=== PATIENT | female | born 2000 | race Caucasian/White ===

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

== ENCOUNTER → 2019-06-07 | Outpatient (CLI) | payer OTHER, SELFPAY ==
[2019-06-07 18:16] LABS: Chlamydia Trachomatis by PCR Negative (Negative); Neisserai gonorrhoeae by PCR Negative (Negative); Probe Check PASS; Sample Adequacy Control PASS; Specimen Processing Control PASS
== END | disposition home or self-care (01) ==
LOC: LABSPEC 15:41
PROVIDERS: Visit Provider Obstetrics & Gynecology
DX: Z11.3 Encounter for screening for infections with a predominantly sexual mode of transmission (principal)
CPT/HCPCS: 87491; 87591

== ENCOUNTER → 2020-06-09 | Outpatient (CLI) | payer OTHER, SELFPAY | END | disposition home or self-care (01) | PROVIDERS: Visit Provider Obstetrics & Gynecology | DX: Z12.4 Encounter for screening for malignant neoplasm of cervix (principal); Z11.3 Encounter for screening for infections with a predominantly sexual mode of transmission ==

== ENCOUNTER → 2021-07-13 | Outpatient (CLI) | payer BC, SELFPAY ==
[2021-07-21 17:03] LABS: Chlamydia By Nucleic Acid AMP Negative; Gonococcus By Nucleic Acid AMP Negative
== END | disposition home or self-care (01) ==
PROVIDERS: Visit Provider Obstetrics & Gynecology
DX: Z11.3 Encounter for screening for infections with a predominantly sexual mode of transmission (principal)
CPT/HCPCS: 87491; 87591

== ENCOUNTER 2023-05-04 18:17 | Emergency (ER) | payer BC, SELFPAY ==
[2023-05-04 18:18] VITALS: BP 127/85; PULSE 80; RESP 16; TEMP 36.9; O2SAT 100
[2023-05-04 18:42] VITALS: BMI 22.6
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
== END 2023-05-04 19:35 | disposition home or self-care (01) ==
PROVIDERS: Emergency Provider Emergency Medicine; PCP Family Medicine; Visit Provider Emergency Medicine
DX: L55.0 Sunburn of first degree (principal); R11.0 Nausea; R50.9 Fever, unspecified
CPT/HCPCS: 99282

== ENCOUNTER → 2023-06-19 | Outpatient (CLI) | payer OTHER, SELFPAY ==
[2023-06-23 17:15] LABS: HPV Reflexed? NOT INDICATED
== END | disposition home or self-care (01) ==
LOC: LABSPEC 16:07
PROVIDERS: PCP Family Medicine; Referring Provider Nurse Practitioner Women's Health; Visit Provider Nurse Practitioner Women's Health
DX: Z12.4 Encounter for screening for malignant neoplasm of cervix (principal)
CPT/HCPCS: 88175; G0145

== ENCOUNTER → 2023-12-11 | Outpatient (CLI) | payer OTHER, SELFPAY | END | disposition home or self-care (01) | LOC: LABSPEC 14:12 | PROVIDERS: PCP Family Medicine; Referring Provider Nurse Practitioner Women's Health; Visit Provider Nurse Practitioner Women's Health | DX: O26.899 Other specified pregnancy related conditions, unspecified trimester (principal); N89.8 Other specified noninflammatory disorders of vagina; Z3A.00 Weeks of gestation of pregnancy not specified | CPT/HCPCS: 87070; 87205 ==

== ENCOUNTER → 2024-01-02 | Outpatient (CLI) | payer OTHER, SELFPAY ==
[2024-01-02 09:13] LABS: Absolute Lymphocyte Count 1.97 X10^3/uL (0.83-4.51); Absolute Neutrophil Count 7.9 X10^3/uL (2.0-7.7); Basophil# 0.08 X10^3/uL; Basophil% 0.7 % (0-1); Eosinophil# 0.13 X10^3/uL; Eosinophils% 1.2 % (0-5); Hematocrit 38.6 % (37-47); Hemoglobin 13.1 g/dL (12.0-15.0); Lymphocyte # 1.97 X10^3/ul (0.83-4.51); Lymphocyte % 18.4 % (19-41); Mean Corp Hgb Conc 33.9 g/dL (32-36); Mean Corpuscular Hgb 31.6 pg (27.0-32.0); Monocyte# 0.62 X10^3/uL; Monocyte% 5.8 % (0-10); NRBC Flagged by Analyzer 0 % (0-5); Neutrophil # 7.86 X10^3/uL (2.7-7.7); Neutrophil % 73.4 % (47-70); Platelet Count 309 K/mm3 (150-450); RBC Distribution Width CV 12.6 % (11.6-14.6); RBC Distribution Width SD 43.4 fl (35.1-43.9); Red Blood Count 4.15 M/mm3 (4.2-5.4); White Blood Count 10.7 K/mm3 (4.4-11.0)
[2024-01-02 10:19] LABS: HIV - WCH Non-Reactive (Nonreactive); Hepatitis B Surface Antigen Non-Reactive (Nonreactive); Hepatitis C Antibody Non-Reactive (Nonreactive); Rubella IgG Reactive (Nonreactive); Syphilis Antibodies Non-reactive
--- OUTSIDE RECORDS SUMMARY | 2024-01-02 20:31 | XMS RPT_ITS | CCD ---
Author Name Unknown Address [address] [place] [address] Organization [facility] Care Team Providers Care Retail Seasonal Specialist Name Role Phone DAE DIAZ Admitting Unavail able DAE DIAZ Referring Unavail able SALINAS, PHUONG Attending Unavailable SALINAS, GREENBELT Primary Care Unavailable SALINAS, GREENBELT Admitting Unavailable Problems Problem Classification Problem Date Documented Da te Episodic/Chronic Malaise and fatigue (1 source) Other fatigue; Translations: [Other fatigue] Onset: 01-04-2023 Episodic Results Test Name Value Interpretation Reference Range Facil ity Encounters Encounter Date Encounter Type Care Provider Facility Start: 01-04-2023 End: 01-04-2023 ambulatory [facility] Start: 01-25-2019 Encounter for genera l adult medical examination without abnormal findings [facility] Start: 01-25-2019 End: 01-29-2019 Patient encounter procedure DAE NABIL [facility] Encounter for genera l adult medical examination without abnormal findings [facility] Summary Purpose Family History No Family History Records FoundNo Family History Records Found Advance Directives No Advanced Directives Records FoundNo Advanced Directives Records Found Additional Source Comments INFORMATION SOURCE (unrecogn ized section and content) DATE CREATED AUTHOR AUTHOR'S ORGANIZ ATION 01/17/2023 [facility] FOR RECORDS PERTAINING TO PATIENTS WHO ARE OR HAVE BEEN ENROLLED IN A CHEMICAL DEPENDENCY/SUBSTANCEABUSE PROGRAM, SOME INFORMATION MAY BE OMITTED. This clinical summary was aggregated from multiple sources. Caution should be exercised in using it in the provision of clinical care. This summary normalizes information from multiple sources, and as a consequence, information in this document may materially change the coding, format and clinical context of patient data. In addition, data may be omitted in some cases. CLINICAL DECISIONS SHOULD BE BASED ON THE PRIMARY CLINICAL RECORDS. [facility] provides no warranty or guarantee of the accuracy or completeness of information in this document.
[2024-01-04 10:09] LABS: Chlamydia By Nucleic Acid AMP Negative (Negative); Gonococcus By Nucleic Acid AMP Negative (Negative)
== END | disposition home or self-care (01) ==
PROVIDERS: PCP Family Medicine; Referring Provider Obstetrics & Gynecology; Visit Provider Obstetrics & Gynecology
DX: Z34.90 Encounter for supervision of normal pregnancy, unspecified, unspecified trimester (principal)
CPT/HCPCS: 36415; 85025; 86703; 86762; 86780; 86803; 86850; 86900; 86901; 87086; 87340; 87491; 87591

== ENCOUNTER → 2024-01-08 | Outpatient (CLI) | payer OTHER, SELFPAY | END | disposition home or self-care (01) | PROVIDERS: PCP Family Medicine; Referring Provider Obstetrics & Gynecology; Visit Provider Obstetrics & Gynecology | DX: Z34.81 Encounter for supervision of other normal pregnancy, first trimester (principal); Z31.430 Encounter of female for testing for genetic disease carrier status for procreative management ==

== ENCOUNTER → 2024-02-02 | Outpatient (CLI) | payer OTHER, SELFPAY | END | disposition home or self-care (01) | LOC: LABSPEC 16:30 | PROVIDERS: PCP Family Medicine; Referring Provider Obstetrics & Gynecology; Visit Provider Obstetrics & Gynecology | DX: O26.899 Other specified pregnancy related conditions, unspecified trimester (principal); R10.2 Pelvic and perineal pain | CPT/HCPCS: 87086 ==

== ENCOUNTER → 2024-04-26 | Outpatient (CLI) | payer OTHER, SELFPAY ==
[2024-04-26 15:01] LABS: Absolute Lymphocyte Count 2.15 X10^3/uL (0.83-4.51); Absolute Neutrophil Count 11.3 X10^3/uL (2.0-7.7); Basophil# 0.05 X10^3/uL; Basophil% 0.3 % (0-1); Eosinophil# 0.11 X10^3/uL; Eosinophils% 0.8 % (0-5); Hematocrit 36.8 % (37-47); Hemoglobin 12.6 g/dL (12.0-15.0); Lymphocyte # 2.15 X10^3/ul (0.83-4.51); Lymphocyte % 14.8 % (19-41); Mean Corp Hgb Conc 34.2 g/dL (32-36); Mean Corpuscular Volume 96.3 fL (81-99); Mean Platelet Vol. 9.5 fl (6.2-12.0); Monocyte# 0.84 X10^3/uL; Monocyte% 5.8 % (0-10); NRBC Flagged by Analyzer 0 % (0-5); Neutrophil # 11.31 X10^3/uL (2.7-7.7); Neutrophil % 77.8 % (47-70); Platelet Count 293 K/mm3 (150-450); RBC Distribution Width CV 13.1 % (11.6-14.6); RBC Distribution Width SD 46.5 fl (35.1-43.9); Red Blood Count 3.82 M/mm3 (4.2-5.4); White Blood Count 14.5 K/mm3 (4.4-11.0)
[2024-04-26 15:30] LABS: Glucose Challenge Gest 1H 50g 94 mg/dL (70-140)
[2024-04-26 15:52] LABS: HIV - WCH Non-Reactive (Nonreactive); Syphilis Antibodies Non-reactive
== END | disposition home or self-care (01) ==
LOC: LAB 14:22
PROVIDERS: PCP Family Medicine; Referring Provider Obstetrics & Gynecology; Visit Provider Obstetrics & Gynecology
DX: Z34.01 Encounter for supervision of normal first pregnancy, first trimester (principal)
CPT/HCPCS: 82950; 85025; 86703; 86780

== ENCOUNTER 2024-06-20 15:30 | Observation (INO) | payer OTHER, SELFPAY ==
[2024-06-20 10:39] VITALS: PULSE 73; O2SAT 100
[2024-06-20 10:42] VITALS: BP 131/87; PULSE 100
[2024-06-20 10:46] VITALS: BMI 29.5
--- NOTE | 2024-06-20 11:33 | US_ITS ---
STUDY: OBSTETRICAL ULTRASOUND - BIOPHYSICAL PROFILE REASON FOR EXAM: Female, 24 years old deceleration PRIOR ULTRASOUND: None. TECHNIQUE: Transabdominal TECHNICAL QUALITY: Adequate. FINDINGS: There is a single intrauterine fetus. The fetus is in a cephalic presentation. There is demonstrated cardiac activity with a heart rate of 141 bpm. There is a normal amniotic fluid volume. The largest amniotic fluid pocket measures 6.4 cm. The amniotic fluid index (MILLY) is 14.9 cm. The placenta is posterior in location and is not low lying. There are Grade 1 placental changes. Age by LMP: 33 weeks, 5 days. ESTEBAN by LMP: August 03, 2024. BIOPHYSICAL PROFILE: Breathing Movements (FBM): 2 Gross Body Movements (GBM): 2 Tone (FT): 2 Amniotic Fluid Volume (AFV): 2 TOTAL SCORE: US/Biophysical Prof W/O Non Stres IMPRESSION: Normal biophysical profile of 05/30. Electronically Signed: Dex Alvarado MD at 13:35 EDT ,
[2024-06-20] MEDS: Lactated Ringers 1,000 ML 999 ML IV (13:20)
[2024-06-20] MEDS: Betamethasone/Betamethasone 30 MG/5 ML Vial 12 MG IM (13:26)
[2024-06-20] MEDS: 0.9% Saline Lock 10 ML Syringe IV (13:28)
[2024-06-20 13:46] LABS: Absolute Lymphocyte Count 2.03 X10^3/uL (0.83-4.51); Absolute Neutrophil Count 11.1 X10^3/uL (2.0-7.7); Basophil# 0.05 X10^3/uL; Basophil% 0.4 % (0-1); Eosinophils% 0.7 % (0-5); Hematocrit 40.1 % (37-47); Hemoglobin 13.8 g/dL (12.0-15.0); Lymphocyte # 2.03 X10^3/ul (0.83-4.51); Lymphocyte % 14.4 % (19-41); Mean Corp Hgb Conc 34.4 g/dL (32-36); Mean Corpuscular Hgb 32.6 pg (27.0-32.0); Mean Corpuscular Volume 94.8 fL (81-99); Mean Platelet Vol. 9.9 fl (6.2-12.0); Monocyte# 0.73 X10^3/uL; Monocyte% 5.2 % (0-10); NRBC Flagged by Analyzer 0 % (0-5); Neutrophil # 11.09 X10^3/uL (2.7-7.7); Neutrophil % 78.7 % (47-70); Platelet Count 259 K/mm3 (150-450); RBC Distribution Width CV 12.6 % (11.6-14.6); RBC Distribution Width SD 43.4 fl (35.1-43.9); Red Blood Count 4.23 M/mm3 (4.2-5.4); White Blood Count 14.1 K/mm3 (4.4-11.0)
[2024-06-20 14:48] LABS: Mucous, Urine 0 SEEN /hpf (<or=2+); Red Blood Cells-Urine 0 SEEN /hpf (0-5)
[2024-06-20 14:57] LABS: Color, Urine Yellow (Yellow); Glucose, Dipstick Normal (Normal); Ketone-Dipstick 50 mg/dl (Negative); Leukocyte Esterase-Dipstick 25 /ul (Negative); Nitrite-Dipstick Negative (Negative); Occult Blood-Urine Negative /ul (Negative); Protein-Dipstick Negative (Negative); Urine Bilirubin Dipstick Negative (Negative); Urine Clarity Clear (Clear); Urine Urobilinogen Normal (Normal); Urine pH 6.5 (5.0 - 8.0)
[2024-06-20 15:03] LABS: Bacteria 1+ /hpf (None Seen); Squamous Epithelial Cells - UA 0-5 SEEN /hpf (5-10); White Blood Cells 0-5 SEEN /hpf (0-5)
[2024-06-20 16:12] LABS: Fetal Fibronectin Negative
[2024-06-20 16:13] LABS: Record Kit Lot#, fFN A4033
[2024-06-20 16:15] VITALS: BP 130/75; PULSE 83; TEMP 36.6
[2024-06-20 19:31] VITALS: PULSE 91; O2SAT 99
[2024-06-20 19:32] VITALS: RESP 14; TEMP 36.6
[2024-06-20 21:10] VITALS: BP 137/78; PULSE 79; O2SAT 97
[2024-06-21] VITALS (7 sets, daily range): BP systolic 112–132; BP diastolic 62–74; PULSE 68–100; RESP 14–15; TEMP 36.6–37.1; O2SAT 96–100
--- NOTE | 2024-06-21 06:43 | US_ITS ---
STUDY: OBSTETRICAL ULTRASOUND - BIOPHYSICAL PROFILE REASON FOR EXAM: Female, 24 years old decelerations PRIOR ULTRASOUND: Comparison is made with prior examination June 20, 2024. TECHNIQUE: Transabdominal TECHNICAL QUALITY: Adequate. FINDINGS: There is a single intrauterine fetus. The fetus is in a cephalic presentation. There is demonstrated cardiac activity with a heart rate of 152 bpm. There is a normal amniotic fluid volume. The largest amniotic fluid pocket measures 4.3 cm. The amniotic fluid index (MILLY) is 11.68 cm. The placenta is fundal in location. There are Grade 1 placental changes. Age by LMP: 33 weeks, 6 days. ESTEBAN by LMP: August 03, 2024. BIOPHYSICAL PROFILE: Breathing Movements (FBM): 2 Gross Body Movements (GBM): 2 Tone (FT): 2 Amniotic Fluid Volume (AFV): 2 TOTAL SCORE: 8 / 8 IMPRESSION: Normal biophysical profile of 8. Electronically Signed: Dex Alvarado MD at 8:39 EDT , STUDY: SECOND AND THIRD TRIMESTER OBSTETRICAL ULTRASOUND REASON FOR EXAM: Female, 24 years old decelerations TECHNIQUE: Transabdominal TECHNICAL QUALITY: Adequate. PRIOR ULTRASOUND: None. FINDINGS: There is a single intrauterine fetus. The fetus is in a cephalic presentation. There is demonstrated cardiac activity with a heart rate of 152 bpm. There is a normal amniotic fluid volume. The largest amniotic fluid pocket measures 4.3 cm. The amniotic fluid index (MILLY) is 11.68 cm. The placenta is fundal in location. There are Grade 1 placental changes. The adnexal regions are not visualized. BIOMETRY: BPD: 8.39 cm: 33 weeks, 5 days HC: 30.78 cm: 34 weeks, 2 days AC: 31.89 cm: 35 weeks, 6 days FL: 6.61 cm: 34 weeks, 0 days CI: 79% FL/BPD: 79% FL/HC: 21% FL/AC: 21% HC/AC: 0.97 age by current US: 34 weeks, 1 days. ESTEBAN by current US: August 01, 2024. Estimated weight: 2589 grams, +/- 388 grams, 78 %. Age by LMP: 33 weeks, 6 days. ESTEBAN by LMP: August 03, 2024. US/Biophysical Prof W/O Non Stres IMPRESSION: Single live intrauterine gestation with mean gestational age of 34 weeks and 1 day. Electronically Signed: Dex Alvarado MD at 8:41 EDT ,
--- NOTE | 2024-06-21 07:19 | OB.TRI.HP_ITS ---
HPI - General General Date of Admission: 06/20/24 HPI Narrative JACKLYN CASTRO, is a 24 F who presents due to decresaed fetla movement today no vb lof no regular ctx felt but they ar epresent on the monitor. Maternal Data Information ESTEBAN Calculator Estimated Delivery Date Method Current WG Current Estimate 08/03/24 LMP (Certain) 33w 6d PFSH PFSH Medical History Seasonal allergies Home Medications ?Medication ?Instructions ?Recorded ?Last Taken ?Type multivitamin no.47-iron fum 27 1 cap PO DAILY 12/29/23 06/19/24 21:00 History mg-folate no.1 1 mg-dha 300 mg 1 cap capsule (PNV-DHA) cetirizine 10 mg capsule (Zyrtec) 10 mg PO DAILY PRN allergy symptoms 03/26/24 03/23/24 08:00 History 10 mg Allergy/AdvReac Type Severity Reaction Status Date / Time No Known Allergies Allergy Verified 06/20/24 10:44 Surgical History [place] teeth extracted Social History adopted: No household members: spouse number of children: 0 current occupational status: employed current occupation: [employer] current occupational exposures/hazards: No pets and animals: Yes pets and animals: dog(s) history of recent travel: Yes ([place]) out of state: Yes out of country: No sexually active: Yes Smoking Status: Never smoker alcohol intake: never substance use type: does not use well-balanced diet: daily or most days caffeine: No eating out: 1-3 times/week during the past year weight has: remained stable what type of 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 duration: 45-60 minutes/day regine/sikhism: Episcopalian seatbelt use: always do you feel safe at home: Yes additional social history: -Brevin- Linemen History 1 Elective abortions Hx Para 0 Spontaneous abortions Hx # Term Pregnancies Ectopic pregnancies Hx # Pregnancies Multiple births # of living children Visit Details Expected Delivery Route/Plan Labor Preferences- CB/BF classes: [] labor support person: [] labor intervention preferences: [] pain management options preferred: [] cut cord/dad catch: [] : [] PP control planned: kris at 6 week ppv discussed possible routes of delivery and associated risks: [] special requests: [] Plans Covid status: [] Flu vaccine: [] Tdap vaccine: given Rhogam: na LARC form signed: declined movement and labor precautions reviewed. Problem list reviewed and updated with the most current plan of care details and appropriate orders placed. Relevant counseling for the gestational age provided. Continue routine care and follow up unless otherwise noted in visit notes/problem list details OB Flowsheet Initial Weight: Not Recorded Date -?-?-?-?-?-?-?-?-?-?-?-?- EGA Weight BP Urine Prot -?-?-?-?-?-?-?-?-?-?-?-?- Glucose FHR FuHt Pres Dilation -?-?-?-?-?-?-?-?-?-?-?-?- Effaced St Visit Note 01/02/24 -?-?-?-?-?-?-?-?-?-?-?-?- 9w 3d 152 lb 2 oz 131/78 -?-?-?-?-?-?-?-?-?-?-?-?- 189 -?-?-?-?-?-?-?-?-?-?-?-?- SM- CRL 2.19cm c ons with LMP 02/02/24 -?-?-?-?-?-?-?-?-?-?-?-?- 13w 6d 157 lb 6 oz 132/79 Nega tive -?-?-?-?-?-?-?-?-?-?-?-?- Negative 161 -?-?-?-?-?-?-?-?-?-?-?-?- JV- no complaint s today. we discussed abnormal carrier screen. FOB got tested and results are pending. 02/27/24 -?-?-?-?-?-?-?-?-?-?-?-?- 17w 3d 166 lb 4 oz 130/84 Nega tive -?-?-?-?-?-?-?-?-?-?-?-?- Negative 151 -?-?-?-?-?-?-?-?-?-?-?-?- JV- anatomy scan is 03/15. 's carrier screen is in chart. 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 03/26/24 -?-?-?-?-?-?-?-?-?-?-?-?- 21w 3d 172 lb 134/79 Negative -?-?-?-?-?-?-?-?-?-?-?-?- Negative 150 20 21 -?-?-?-?-?-?-?-?-?-?-?-?- KW- no vb/crampi ng. flutters today. KW- no vb/cramping. flutters today. 28 week labs discussed and planned to get before next appt. 04/26/24 -?-?-?-?-?-?-?-?-?-?-?-?- 25w 6d 175 lb 131/80 Negative -?-?-?-?-?-?-?-?-?-?-?-?- Negative 150 25 -?-?-?-?-?-?-?-?-?-?-?-?- SM- no vb lof go od fm no reuglar ctx 05/16/24 -?-?-?-?-?-?-?-?-?-?-?-?- 28w 5d 180 lb 8 oz 127/82 Nega tive -?-?-?-?-?-?-?-?-?-?-?-?- Negative 147 28 -?-?-?-?-?-?-?-?-?-?-?-?- JV- tdap was don e today. no complaints. 05/31/24 -?-?-?-?-?-?-?-?-?-?-?-?- 30w 6d 180 lb 114/71 Negative -?-?-?-?-?-?-?-?-?-?-?-?- Negative 140 30 -?-?-?-?-?-?-?-?-?-?-?-?- SM- no vb lof go od fm no regular ctx discussed control options consider kris after delivery, h/o acne but willing to try 06/14/24 -?-?-?-?-?-?-?-?-?-?-?-?- 32w 6d 183 lb 8 oz 124/79 Nega tive -?-?-?-?-?-?-?-?-?-?-?-?- Negative 150 33 -?-?-?-?-?-?-?-?-?-?-?-?- KW- no vb/lof/ct x. good fm. ROS Constitutional Constitutional: Reports systems reviewed and no addt'l complaints, except as documented and as per HPI ENT HEENT: Reports systems reviewed and no addt'l complaints, except as documented Cardiovascular Cardiovascular: Reports systems reviewed and no addt'l complaints, except as documented Respiratory/Chest Respiratory/Chest: Reports systems reviewed and no addt'l complaints, except as documented Gastrointestinal Gastrointestinal: Reports as per HPI Genitourinary Genitourinary: Reports as per HPI Musculoskeletal Musculoskeletal: Reports systems reviewed and no addt'l complaints, except as documented Integumentary Integumentary: Reports systems reviewed and no addt'l complaints, except as documented Neurologic Neurologic: Reports systems reviewed and no addt'l complaints, except as documented Physical Exam Const alert, oriented x3 and no apparent distress HEENT Head and Scalp: normocephalic and atraumatic Neck full ROM and no lymphadenopathy Chest inspection of chest normal Resp normal respiratory effort GI GI Narrative: gravid, abdomen nontender, AGA Manual OB Exam: dilated, effaced and station NST FHR Rate Baby A Baseline: 140 Variability:: Moderate Accelerations:: 15 x 15 Decelerations:: Late (one isolated decel) NST Reactive:: Yes FHR Category:: Category I (overall.) Uterine Activity:: regular q 2-4 Assessment & Plan (1) Late deceleration of heart rate: (2) Decreased movements in third trimester: (3) : QUALIFIERS: Weeks of gestation: 32 weeks Qualified Code(s): Z3A.32 - 32 weeks gestation of COMMENT: nl GCT, nl anatomy, afp declined. NIPT low risk, carrier testing neg. 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 celestone given., no cervical change. Charges/Coding Multi Select Codes Visit Charges Observation E&M Codin Initial observation care L3 Urinary/Genital Urinary/Genital CPT Codes: 96913-36 non-stress test Interp
--- NOTE | 2024-06-21 07:22 | OB.TRI.HP_ITS ---
HPI - General General Date of Admission: 06/20/24 HPI Narrative JACKLYN CASTRO, is a 24 F monitored overnight for dec movment now feeling large amounts of movement, 05/30 bpp yesterday no vb othe rthan with cervical exam, no lof doesn't feel the ctx. slept overnight. periods of a lower heart rate baseline ovenright but reactive and moderate variability. Maternal Data Information ESTEBAN Calculator Estimated Delivery Date Method Current WG Current Estimate 08/03/24 LMP (Certain) 34w 0d PFSH PFSH Medical History Seasonal allergies Home Medications ?Medication ?Instructions ?Recorded ?Last Taken ?Type multivitamin no.47-iron fum 27 1 cap PO DAILY 12/29/23 06/19/24 21:00 History mg-folate no.1 1 mg-dha 300 mg 1 cap capsule (PNV-DHA) cetirizine 10 mg capsule (Zyrtec) 10 mg PO DAILY PRN allergy symptoms 03/26/24 03/23/24 08:00 History 10 mg Allergy/AdvReac Type Severity Reaction Status Date / Time No Known Allergies Allergy Verified 06/20/24 10:44 Surgical History [place] teeth extracted Social History adopted: No household members: spouse number of children: 0 current occupational status: employed current occupation: [employer] current occupational exposures/hazards: No pets and animals: Yes pets and animals: dog(s) history of recent travel: Yes ([place]) out of state: Yes out of country: No sexually active: Yes Smoking Status: Never smoker alcohol intake: never substance use type: does not use well-balanced diet: daily or most days caffeine: No eating out: 1-3 times/week during the past year weight has: remained stable what type of 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 duration: 45-60 minutes/day regine/episcopal: Restoration seatbelt use: always do you feel safe at home: Yes additional social history: -Brevin- Linemen History 1 Elective abortions Hx Para 0 Spontaneous abortions Hx # Term Pregnancies Ectopic pregnancies Hx # Pregnancies Multiple births # of living children Visit Details Expected Delivery Route/Plan Labor Preferences- CB/BF classes: [] labor support person: [] labor intervention preferences: [] pain management options preferred: [] cut cord/dad catch: [] : [] PP control planned: kris at 6 week ppv discussed possible routes of delivery and associated risks: [] special requests: [] Plans Covid status: [] Flu vaccine: [] Tdap vaccine: given Rhogam: na LARC form signed: declined movement and labor precautions reviewed. Problem list reviewed and updated with the most current plan of care details and appropriate orders placed. Relevant counseling for the gestational age provided. Continue routine care and follow up unless otherwise noted in visit notes/problem list details OB Flowsheet Initial Weight: Not Recorded Date -?-?-?-?-?-?-?-?-?-?-?-?- EGA Weight BP Urine Prot -?-?-?-?-?-?-?-?-?-?-?-?- Glucose FHR FuHt Pres Dilation -?-?-?-?-?-?-?-?-?-?-?-?- Effaced St Visit Note 01/02/24 -?-?-?-?-?-?-?-?-?-?-?-?- 9w 3d 152 lb 2 oz 131/78 -?-?-?-?-?-?-?-?-?-?-?-?- 189 -?-?-?-?-?-?-?-?-?-?-?-?- SM- CRL 2.19cm c ons with LMP 02/02/24 -?-?-?-?-?-?-?-?-?-?-?-?- 13w 6d 157 lb 6 oz 132/79 Nega tive -?-?-?-?-?-?-?-?-?-?-?-?- Negative 161 -?-?-?-?-?-?-?-?-?-?-?-?- JV- no complaint s today. we discussed abnormal carrier screen. FOB got tested and results are pending. 02/27/24 -?-?-?-?-?-?-?-?-?-?-?-?- 17w 3d 166 lb 4 oz 130/84 Nega tive -?-?-?-?-?-?-?-?-?-?-?-?- Negative 151 -?-?-?-?-?-?-?-?-?-?-?-?- JV- anatomy scan is 03/15. 's carrier screen is in chart. 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 03/26/24 -?-?-?-?-?-?-?-?-?-?-?-?- 21w 3d 172 lb 134/79 Negative -?-?-?-?-?-?-?-?-?-?-?-?- Negative 150 20 21 -?-?-?-?-?-?-?--?-?-?-?-?- KW- no vb/crampi ng. flutters today. KW- no vb/cramping. flutters today. 28 week labs discussed and planned to get before next appt. 04/26/24 -?-?-?-?-?-?-?-?--?-?-?-?- 25w 6d 175 lb 131/80 Negative -?-?-?-?-?-?-?-?-?-?-?-?- Negative 150 25 -?-?-?-?-?-?-?-?-?-?-?-?- SM- no vb lof go od fm no reuglar ctx 05/16/24 -?-?-?-?-?-?-?-?-?-?-?-?- 28w 5d 180 lb 8 oz 127/82 Nega tive -?-?-?-?-?-?-?-?-?-?-?-?- Negative 147 28 -?-?-?-?-?-?-?-?-?-?-?--?- JV- tdap was don e today. no complaints. 05/31/24 -?-?-?-?-?-?-?-?-?-?-?-?- 30w 6d 180 lb 114/71 Negative -?-?-?-?-?-?-?-?-?-?-?-?- Negative 140 30 -?-?-?-?-?-?-?-?-?-?-?-?- SM- no vb lof go od fm no regular ctx discussed control options consider kris after delivery, h/o acne but willing to try 06/14/24 -?-?-?-?-?-?-?-?-?-?-?-?- 32w 6d 183 lb 8 oz 124/79 Nega tive -?-?-?-?-?-?-?-?-?-?-?-?- Negative 150 33 -?-?-?-?-?-?-?-?-?-?-?-?- KW- no vb/lof/ct x. good fm. ROS Constitutional Constitutional: Reports systems reviewed and no addt'l complaints, except as documented and as per HPI ENT HEENT: Reports systems reviewed and no addt'l complaints, except as documented Cardiovascular Cardiovascular: Reports systems reviewed and no addt'l complaints, except as documented Respiratory/Chest Respiratory/Chest: Reports systems reviewed and no addt'l complaints, except as documented Gastrointestinal Gastrointestinal: Reports as per HPI Genitourinary Genitourinary: Reports as per HPI Musculoskeletal Musculoskeletal: Reports systems reviewed and no addt'l complaints, except as documented Integumentary Integumentary: Reports systems reviewed and no addt'l complaints, except as documented Neurologic Neurologic: Reports systems reviewed and no addt'l complaints, except as documented Physical Exam Const alert, oriented x3 and no apparent distress HEENT Head and Scalp: normocephalic and atraumatic Neck full ROM and no lymphadenopathy Chest inspection of chest normal Resp normal respiratory effort GI GI Narrative: gravid, abdomen nontender, AGA Manual OB Exam: dilated, effaced and station NST FHR Rate Baby A Baseline: 110-130 Variability:: Moderate Accelerations:: 15 x 15 Decelerations:: None NST Reactive:: Yes FHR Category:: Category I (overall.) Uterine Activity:: spacing out more intermittent. Assessment & Plan (1) Late deceleration of heart rate: (2) Decreased movements in third trimester: (3) : QUALIFIERS: Weeks of gestation: 32 weeks Qualified Code(s): Z3A.32 - 32 weeks gestation of COMMENT: nl GCT, nl anatomy, afp declined. NIPT low risk, carrier testing neg. 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 kick counts fu nst monday Charges/Coding Multi Select Codes Visit Charges Observation E&M Codin Observation care discharge Urinary/Genital Urinary/Genital CPT Codes: 18117-24 non-stress test Interp
[2024-06-21] MEDS: Betamethasone/Betamethasone 30 MG/5 ML Vial 12 MG IM (13:14)
== END 2024-06-21 13:45 | disposition home or self-care (01) ==
PROVIDERS: Admitting Provider Obstetrics & Gynecology; PCP Family Medicine; Referring Provider Obstetrics & Gynecology; Visit Provider Obstetrics & Gynecology
DX: O36.8130 Decreased fetal movements, third trimester, not applicable or unspecified (principal); Z3A.34 34 weeks gestation of pregnancy
CPT/HCPCS: 96360; 36415; 59025; 59050; 76816; 76819; 81001; 82731; 85025; 86850; 86900; 86901; 96372; 99221; J7120; A4216; G0378; J0702

== ENCOUNTER 2024-06-24 08:35 | Outpatient (CLI) | payer OTHER, SELFPAY ==
[2024-06-24 08:48] VITALS: RESP 16; TEMP 36.5
[2024-06-24 08:49] VITALS: BP 120/74; PULSE 71
[2024-06-24 08:50] VITALS: PULSE 77; O2SAT 99
[2024-06-24 08:53] VITALS: BMI 29.9
[2024-06-24 10:17] VITALS: BP 124/76; PULSE 94; RESP 16; TEMP 36.8
[2024-06-24 10:19] VITALS: PULSE 90; O2SAT 94
[2024-06-24 10:20] VITALS: O2SAT 97
--- NOTE | 2024-06-24 11:11 | OB.TRI.PN ---
Progress Notes Progress Note: Patient presents for triage evaluation secondary to heart rate deceleration FHT: 140 Moderate variability reactive no decelerations category I tracing [place]: no regular Contractions Assessment and plan: herat rate deceleartoin 34 weeks Reactive NST, reassuring maternal and status patient discharged to home to follow-up as scheudled in office this ewke. See problem list details for additional plan information. Charges/Coding Procedures Urinary/Genital 52xxx-59xxx: 67351-37 non-stress test Interp Assessment & Plan (1) Supervision of normal : QUALIFIERS: Normal : normal first Trimester: first trimester Qualified Code(s): Z34.01 - Encounter for supervision of normal first , first trimester COMMENT: PRR , ESTEBAN 08/03/24, girl Sadie Aster (2) : QUALIFIERS: Weeks of gestation: 32 weeks Qualified Code(s): Z3A.32 - 32 weeks gestation of COMMENT: nl GCT, nl anatomy, afp declined. NIPT low risk, carrier testing neg. 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
== END 2024-06-24 09:30 | disposition home or self-care (01) ==
LOC: OBT 08:38 → WP 08:39
PROVIDERS: PCP Family Medicine; Visit Provider Obstetrics & Gynecology
DX: O36.8130 Decreased fetal movements, third trimester, not applicable or unspecified (principal); Z3A.32 32 weeks gestation of pregnancy; O36.8330 Maternal care for abnormalities of the fetal heart rate or rhythm, third trimester, not applicable or unspecified
CPT/HCPCS: 59025

== ENCOUNTER 2024-06-28 09:52 | Inpatient (IN) | payer OTHER, SELFPAY ==
[2024-06-28] VITALS (18 sets, daily range): BP systolic 102–141; BP diastolic 68–104; PULSE 59–81; RESP 12–18; TEMP 35.9–37.2; O2SAT 96–100; BMI 29.9
--- NOTE | 2024-06-28 09:13 | US_ITS ---
STUDY: OBSTETRICAL ULTRASOUND - BIOPHYSICAL PROFILE REASON FOR EXAM: Female, 24 years old possible abruption -- portable LMP: Not provided. PRIOR ULTRASOUND: 06/21/2024. TECHNIQUE: Transabdominal. TECHNICAL QUALITY: Incomplete exam. Dr. Ellis arrived to US room and stopped the US exam to deliver patient. FINDINGS: There is a single intrauterine fetus. The fetus is in a cephalic presentation. There is demonstrated cardiac activity with a heart rate of 144 bpm. The placenta is right lateral and fundal. There are Grade 1 placental changes. There is a hypoechoic area in the superior aspect of the placenta without vascularity measuring 4.3 x 4.3 x 2 cm. Age by LMP: 34 weeks, 6 days. ESTEBAN by LMP: 08/03/2024.. age by prior US: weeks, days. ESTEBAN by prior US: . age by current US: weeks, days. ESTEBAN by current US: . Gender: BIOPHYSICAL PROFILE: Breathing Movements (FBM): Gross Body Movements (GBM): Tone (FT): Amniotic Fluid Volume (AFV): TOTAL SCORE: / 8 US/Biophysical Prof W/O Non Stres IMPRESSION: 1. Incomplete exam since ordering physician came to the ultrasound room and stopped the ultrasound exam to deliver the patient. Unable to obtain biophysical profile. 2. Single live intrauterine in cephalic presentation with positive heart tones 144 BPM. 3. Abnormal hypoechoic area in the superior aspect of placenta without vascularity measuring 4.3 x 4.3 x 2 cm worrisome for placental abruption. Electronically Signed: Lam Rosario MD at 10:48 EDT ,
[2024-06-28] MEDS: Lactated Ringers 1,000 ML 999 ML IV (09:35)
[2024-06-28 09:53] LABS: Absolute Neutrophil Count 13.3 X10^3/uL (2.0-7.7); Basophil# 0.06 X10^3/uL; Basophil% 0.4 % (0-1); Eosinophils% 0.6 % (0-5); Hematocrit 43.1 % (37-47); Hemoglobin 14.8 g/dL (12.0-15.0); Lymphocyte % 13.6 % (19-41); Mean Corp Hgb Conc 34.3 g/dL (32-36); Mean Corpuscular Hgb 32.3 pg (27.0-32.0); Mean Corpuscular Volume 94.1 fL (81-99); Mean Platelet Vol. 9.9 fl (6.2-12.0); Monocyte# 0.97 X10^3/uL; Monocyte% 5.7 % (0-10); NRBC Flagged by Analyzer 0 % (0-5); Neutrophil # 13.33 X10^3/uL (2.7-7.7); Neutrophil % 78.9 % (47-70); Platelet Count 292 K/mm3 (150-450); RBC Distribution Width CV 12.2 % (11.6-14.6); RBC Distribution Width SD 42.4 fl (35.1-43.9); Red Blood Count 4.58 M/mm3 (4.2-5.4); White Blood Count 16.9 K/mm3 (4.4-11.0)
[2024-06-28] MEDS: Acetaminophen 500 MG Tablet 1000 MG PO ×3 (10:01→22:30)
[2024-06-28] MEDS: Sodium Citrate/Citric Acid 30 ML UDC PO (10:01)
--- NOTE | 2024-06-28 10:01 | HP.PCM.OB_ITS ---
HPI - General General Date of Admission: 06/28/24 HPI Narrative JACKLYN CASTRO, is a 24 F who presents with acute vaginal bleeding abodminla pain, diagnosed iwth abruption on ultrosaund received steroids a week ago. Maternal Data Information ESTEBAN Calculator Estimated Delivery Date Method Current WG Current Estimate 08/03/24 LMP (Certain) 34w 6d PFSH PFSH Medical History Seasonal allergies Home Medications ?Medication ?Instructions ?Recorded ?Last Taken ?Type multivitamin no.47-iron fum 27 1 cap PO DAILY 12/29/23 06/23/24 History mg-folate no.1 1 mg-dha 300 mg capsule (PNV-DHA) cetirizine 10 mg capsule (Zyrtec) 10 mg PO DAILY PRN allergy symptoms 03/26/24 03/23/24 08:00 History 10 mg Allergy/AdvReac Type Severity Reaction Status Date / Time No Known Allergies Allergy Verified 06/28/24 08:54 Surgical History [place] teeth extracted Social History adopted: No household members: spouse number of children: 0 current occupational status: employed current occupation: [employer] current occupational exposures/hazards: No pets and animals: Yes pets and animals: dog(s) history of recent travel: Yes ([place]) out of state: Yes out of country: No sexually active: Yes Smoking Status: Never smoker alcohol intake: never substance use type: does not use well-balanced diet: daily or most days caffeine: No eating out: 1-3 times/week during the past year weight has: remained stable what type of 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 duration: 45-60 minutes/day regine/mu-ism: Hindu seatbelt use: always do you feel safe at home: Yes additional social history: -Brevin- [employer] History 1 Elective abortions Hx Para 0 Spontaneous abortions Hx # Term Pregnancies Ectopic pregnancies Hx # Pregnancies Multiple births # of living children Visit Details Expected Delivery Route/Plan Labor Preferences- CB/BF classes: [] labor support person: [] labor intervention preferences: [] pain management options preferred: [] cut cord/dad catch: [] : [] PP control planned: kris at 6 week ppv discussed possible routes of delivery and associated risks: [] special requests: [] Plans Covid status: [] Flu vaccine: [] Tdap vaccine: given Rhogam: na LARC form signed: declined movement and labor precautions reviewed. Problem list reviewed and updated with the most current plan of care details and appropriate orders placed. Relevant counseling for the gestational age provided. Continue routine care and follow up unless otherwise noted in visit notes/problem list details OB Flowsheet Initial Weight: Not Recorded Date -?-?-?-?-?-?-?-?-?-?-?-?- EGA Weight BP Urine Prot -?-?-?-?-?-?-?-?-?-?-?-?- Glucose FHR FuHt Pres Dilation -?-?-?-?-?-?-?-?-?-?-?-?- Effaced St Visit Note 01/02/24 -?-?-?-?-?-?-?-?-?-?-?-?- 9w 3d 152 lb 2 oz 131/78 -?-?-?-?-?-?-?-?-?-?-?-?- 189 -?-?-?-?-?-?-?-?-?-?-?-?- SM- CRL 2.19cm c ons with LMP 02/02/24 -?-?-?-?-?-?-?-?-?-?-?-?- 13w 6d 157 lb 6 oz 132/79 Nega tive -?-?-?-?-?-?-?-?-?-?-?-?- Negative 161 -?-?-?-?--?-?-?-?-?-?-?-?- JV- no complaint s today. we discussed abnormal carrier screen. FOB got tested and results are pending. 02/27/24 -?-?-?-?-?-?-?-?-?-?-?-?- 17w 3d 166 lb 4 oz 130/84 Nega tive -?-?-?-?-?-?-?-?-?-?-?-?- Negative 151 -?-?-?-?-?-?-?-?-?-?-?-?- JV- anatomy scan is 03/15. 's carrier screen is in chart. 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 03/26/24 -?-?-?-?-?-?-?-?-?-?-?-?- 21w 3d 172 lb 134/79 Negative -?-?-?-?-?-?-?-?-?-?-?-?- Negative 150 20 21 -?-?-?-?-?-?-?-?-?-?-?-?- KW- no vb/crampi ng. flutters today. KW- no vb/cramping. flutters today. 28 week labs discussed and planned to get before next appt. 04/26/24 -?-?-?-?-?-?-?-?-?-?-?-?- 25w 6d 175 lb 131/80 Negative -?-?-?-?-?-?-?-?-?-?-?-?- Negative 150 25 -?-?-?-?-?-?-?-?-?-?-?-?- SM- no vb lof go od fm no reuglar ctx 05/16/24 -?-?-?-?-?-?-?-?-?-?-?-?- 28w 5d 180 lb 8 oz 127/82 Nega tive -?-?-?-?-?-?-?-?-?-?-?-?- Negative 147 28 -?-?-?-?-?-?-?-?-?-?-?-?- JV- tdap was don e today. no complaints. 05/31/24 -?-?-?-?-?-?-?-?-?-?-?-?- 30w 6d 180 lb 114/71 Negative -?-?-?-?-?-?-?-?-?-?-?-?- Negative 140 30 -?-?-?-?-?-?-?-?-?-?-?-?- SM- no vb lof go od fm no regular ctx discussed control options consider kris after delivery, h/o acne but willing to try 06/14/24 -?-?-?-?-?-?-?-?-?-?-?-?- 32w 6d 183 lb 8 oz 124/79 Nega tive -?-?-?-?-?-?-?-?-?-?-?-?- Negative 150 33 -?-?-?-?-?-?-?-?-?-?-?-?- KW- no vb/lof/ct x. good fm. NST FHR Rate Baby A Baseline: 150 Variability:: Moderate Accelerations:: 15 x 15 Decelerations:: None NST Reactive:: Yes FHR Category:: Category I Uterine Activity:: q3-5 ROS Constitutional Constitutional: Reports systems reviewed and no addt'l complaints, except as documented ENT HEENT: Reports systems reviewed and no addt'l complaints, except as documented Cardiovascular Cardiovascular: Reports systems reviewed and no addt'l complaints, except as documented Respiratory/Chest Respiratory/Chest: Reports systems reviewed and no addt'l complaints, except as documented Gastrointestinal Gastrointestinal: Reports systems reviewed and no addt'l complaints, except as documented and nausea; Denies abdominal pain Genitourinary Genitourinary: Reports systems reviewed and no addt'l complaints, except as documented, contractions Details: present and frequency (regular ) and movement Details: present Musculoskeletal Musculoskeletal: Reports systems reviewed and no addt'l complaints, except as documented Integumentary Integumentary: Reports as per HPI Neurologic Neurologic: Reports systems reviewed and no addt'l complaints, except as documented Endocrine Endocrinology: Reports systems reviewed and no addt'l complaints, except as documented Vital Signs Vital Signs Vital Signs: 06/28/24 08:55 06/28/24 08:55 06/28/24 08:55 Temperature Temperature Source Temporal Pulse Rate 81 Respiratory Rate Blood Pressure 129/85 H BP Systolic 129 BP Diastolic 85 Pulse Ox 06/28/24 08:55 06/28/24 08:55 06/28/24 08:55 Temperature 98.9 F Temperature Source Pulse Rate Respiratory Rate 16 Blood Pressure BP Systolic BP Diastolic Pulse Ox 99 Weight Weight: 185 lb 5 oz Body Mass Index (BMI) 29.9 Physical Exam Const alert, oriented x3 and healthy appearing Constitutional Narrative: uncomfortable with contractions HEENT normocephalic and moist oral mucous membranes Head and Scalp: atraumatic Neck full ROM, no lymphadenopathy, supple and thyroid normal General: trachea midline Thyroid: thyroid normal Lymph Lymphatic: no lymphadenopathy noted Chest inspection of chest normal Resp normal respiratory effort Cardio regular rate GI normal to inspection, nondistended, normoactive bowel sounds, soft to palpation and non-tender Inspection: gravid external exam normal Bimanual Exam - Vag & Uterus: uterus non-tender Manual OB Exam: estimated gestational size appropriate, presentation cephalic, dilated, effaced and station Extremity normal to inspection General Extremity: Negative for edema Skin no rashes or lesions noted Neuro deep tendon reflexes 2+ bilaterally Motor Exam: strength 5/5 throughout and clonus absent Psych mental status grossly normal Labs Labs Labs: Blood Type A POSITIVE Antibody Screen NEGATIVE Hct 43.1 % (37-47) Hgb 14.8 g/dL (12.0-15.0) Syphilis Total Ab Non-reactive Rubella IgG Antibody Reactive (Nonreactive) Hep Bs Antigen Non-Reactive (Nonreactive) Hepatitis C Antibody Non-Reactive (Nonreactive) Chlamydia DNA (CHAZ) Negative (Negative) N.gonorrhoeae DNA (CHAZ) Negative (Negative) HIV 1&2 Antibody Non-Reactive (Nonreactive) Glucose 1 Hr 50 gm 94 mg/dL (70-140) Miscellaneous Test Assessment & Plan (1) : QUALIFIERS: Weeks of gestation: 32 weeks Qualified Code(s): Z3A.32 - 32 weeks gestation of COMMENT: nl GCT, nl anatomy, afp declined. NIPT low risk, carrier testing neg. 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 After discussing the patient's diagnosis and treatment plan options, patient wishes to proceed with surgical management. I have discussed with the patient the risks, benefits, and alternatives of the procedure which include but are not limited to risks of anesthesia, bleeding, infection, possible damage to bowel, bladder, or surrounding vasculature which could lead to additional surgery to evaluate any complications. Patient agrees to procedure and wishes to proceed. ACOG/uptodate references given for additional information regarding procedure.
--- NOTE | 2024-06-28 10:04 | OP.PCM_ITS ---
Assessment & Plan (1) Vaginal bleeding during : (2) Placental abruption in third trimester: (3) : QUALIFIERS: Weeks of gestation: 32 weeks Qualified Code(s): Z3A.32 - 32 weeks gestation of COMMENT: nl GCT, nl anatomy, afp declined. NIPT low risk, carrier testing neg. 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 (4) Supervision of normal : QUALIFIERS: Normal : normal first Trimester: first trimester Qualified Code(s): Z34.01 - Encounter for supervision of normal first , first trimester COMMENT: PRR , ESTEBAN 08/03/24, girl Sadie Rodarte Maternal Data Information ESTEBAN Calculator Estimated Delivery Date Method Current WG Current Estimate 08/03/24 LMP (Certain) 35w 0d Final ESTEBAN Source: LMP Gestational age: 39 Details Operative Information Date of Procedure: 06/28/24 Pre-Operative Diagnosis: see a/p diagnoses Post-Operative Diagnosis: same Indications Narrative: surgeon: Linh Kim MD Procedure Type: low transverse kindergarten instructional assistant #1: Jessy Black Special Medications: none Drain: Maki to straight drain Estimated Blood Loss: 600 Fluids Replaced: crystalloid Procedure Start Time: 10:06 Procedure Stop Time: 11:00 Findings Description of Procedure: The patient was placed in the dorsal supine position with leftward tilt. Patient was prepped and draped in the normal sterile fashion. Pfannenstiel skin incision was made with the scalpel and carried through to the underlying layer of fascia with the scalpel. Fascia was nicked in the midline and the incision extended laterally. The rectus bellies were dissected off superiorly and inferiorly with out complication both sharply and bluntly. The peritoneum was entered digitally. The incision was stretched and a low transverse uterine incision was made with the scalpel. The 's head was delivered atraumatically followed by the anterior and posterior shoulders without complication the rest of the infant delivered. The cord was clamped and cut and the was handed off to awaiting nurse. The placenta was delivered spontaneously immediately following and was noted to be intact with an abruption noted underneath one of the cotyledons and have a three-vessel cord. dark 1/4 cup sized clot noted, and couvelair uterus small amount noted also. The uterus was exteriorized cleared of all clots and debris, and the incision was closed in a single layer closure using #1 Monocryl. The ovaries and fallopian tubes were noted to be within normal limits. The uterus was returned to the maternal abdomen and gutters were cleared of all clots and debris. The peritoneum was closed with 3-0 Monocryl in a running fashion. Fascia was closed with 0 PDS in a running fashion. Subcutaneous tissue was copiously irrigated and the skin was closed with 3-0 Monocryl in a subcuticular fashion. Mepilex dressing was applied without complication. Patient was taken to recovery in stable condition. It was discussed with the patient that based on the clinical information obtained during this encounter, combined with her history, at this time I would recommend vaginal or cesareans for future deliveries if further pregnancies are desired. Placental Delivery Description: Spontaneous Placenta Disposition: [facility] Cord Vessel Description: 3 Vessels Delayed Cord Clamping: Yes Complications Risks of Surgery Discussed w/Patient: Bleeding, Infection, Need for Future C- Sections and Injury to surrounding structure(s) including bowel and bladder Complications: none Admit VTE Documentation VTE Present on Admission: No VTE Mechan Device Prophylaxis: SCD's Procedures Urinary/Genital 52xxx-59xxx: 30091 Delivery [facility]
[2024-06-28] MEDS: Cefazolin 2 GM in 0.9% Normal Saline (100mL Bag) 100 ML IV (10:06)
[2024-06-28 10:34] LABS: Prothrombin Time (Protime)PT. 13.2 SECONDS (11.7-14.9)
[2024-06-28 10:35] LABS: Partial Thromboplast Time 27.2 Seconds (24.1-36.2)
[2024-06-28 10:41] LABS: Fibrinogen 516 mg/dl (203-444)
[2024-06-28] MEDS: Oxytocin 15 Units/NS 250ml 15 UNITS/250 ML IV.SOLN 83 UNITS IV (11:10)
[2024-06-28] MEDS: Ketorolac 30 MG/ML Syringe IV ×3 (11:39→23:59)
--- NOTE | 2024-06-28 11:52 | PLAC_PTH ---
PATIENT: JACKLYN CASTRO LOC: [facility] U#:[id number] AGE/SX: 24/F ROOM: [facility] RE06/28/[address]: Dr. Linh Kim MD : 2000 BED: 1 DIS: 06/30/2024 SPEC #: [id number] RECD: 06/28/24 11:57 STATUS: ESTEFANIA DEMARCO #: [id number] SANIYA: 06/28/24 11:[address]: Linh Kim DEPT: SURGICAL PATHOLOGY RECD BY: Stephen Smiley ENTERED: 07/01/24 07:14 SP TYPE: PLACENTA OTHR DR: Sandra Kidd PA-C Tissues: Placenta, NOS Procedures: Surgery Specimen Level V HEADER OPERATION: Primary section PRE-OP DIAGNOSIS: Abruption TISSUE SUBMITTED: Placenta MICROSCOPIC DIAGNOSIS Placenta: Placental disc - third trimester placenta (426 gm). - Focal area of peripheral infarction and calcifications (2.5 cm in greatest dimension). Membranes - no pathologic diagnosis. Umbilical cord - three blood vessels and no pathologic diagnosis. SJ: 07/02/2024 MICROSCOPIC DESCRIPTION Slides are reviewed. GROSS DESCRIPTION SPECIMEN: PLACENTA / CLINICAL INFORMATION: A. Weight: Not available B. Gestational Age: 34 weeks C. Sex: Female PLACENTAL WEIGHT (POST FIXATION): 426 gm PLACENTAL DIMENSIONS: 15.0 x 17.0 x 3.0 cm PLACENTAL SHAPE: Usual ovoid PLACENTAL WEIGHT FOR GESTATIONAL AGE: Within 10-99th percentile MEMBRANES - Present A. Insertion: Marginal B. Site of rupture from edge: 2.0 cm from edge of placental disc C. Color of membrane: Villalba-bass D. Abnormalities: None UMBILICAL CORD - Present A. Color: Villalba-bass B. Insertion: Paracentral C. Length: 23.0 cm D. Diameter: 1.3 cm E. Number of vessels: Three F. Abnormalities: None PLACENTAL DISC - Present A. Color of surface: Villalba-bass B. surface abnormalities: None C. Maternal cotyledons: Intact with minimal tears D. Attached retro placental clot: No clot E. Cut surface: Dark red and spongy F. Lesions: Sections reveal a villalba indurated area in the peripheral portion of the placenta measuring 2.5cm in greatest dimension. G. Separate clot: Multiple blood clots weighing in aggregate 20gm and measuring 5.0 x 6.0 x 2.0cm. SECTIONS SUBMITTED: (6 cassettes) 1. Membrane roll 2. Cord, maternal end 3. Cord, end 4. Placental disc, and maternal surfaces, lesion 5. Placental disc, and maternal surfaces 6. Placental disc, and maternal surfaces JORDYN/ 07/01/2024 TC:5 CPT: 79434
[2024-06-28] MEDS: Lactated Ringers 1,000 ML 100 ML IV (14:15)
[2024-06-28] MEDS: 0.9% Saline Lock 10 ML Syringe IV (15:38)
[2024-06-29 00:03] VITALS: BP 118/81; PULSE 60; RESP 16; TEMP 36.7; O2SAT 96
[2024-06-29] MEDS: Acetaminophen 500 MG Tablet 1000 MG PO ×4 (04:29→23:38)
[2024-06-29] MEDS: Ketorolac 30 MG/ML Syringe IV (06:05)
[2024-06-29] MEDS: 0.9% Saline Lock 10 ML Syringe IV ×2 (06:05)
[2024-06-29 06:21] VITALS: BP 122/81; PULSE 64
[2024-06-29 06:21] LABS: Hematocrit 36.1 % (37-47); Mean Corp Hgb Conc 33.2 g/dL (32-36); Mean Corpuscular Hgb 32.3 pg (27.0-32.0); Mean Platelet Vol. 9.8 fl (6.2-12.0); Platelet Count 244 K/mm3 (150-450); RBC Distribution Width CV 12.5 % (11.6-14.6); RBC Distribution Width SD 44.6 fl (35.1-43.9); Red Blood Count 3.72 M/mm3 (4.2-5.4); White Blood Count 18.7 K/mm3 (4.4-11.0)
[2024-06-29 06:22] VITALS: BP 122/81; PULSE 64; RESP 16; TEMP 36.7; O2SAT 98
[2024-06-29 07:33] VITALS: BP 131/80; PULSE 68; PULSE 71; PULSE 74; RESP 16; TEMP 36.5; O2SAT 100; O2SAT 97
--- NOTE | 2024-06-29 08:16 | PCM.PN.OB ---
Subjective Subjective Patient doing well without complaints. Tolerating PO. Ambulating and voiding without difficulty. feeding well. Denies chest pain, shortness of breath, calf pain/swelling, fevers, chills, lightheadedness. Objective Data Objective Data Vital Signs: Vital Signs Temp Pulse Resp BP Pulse Ox O2 Del Method 97.7 F L 74 16 131/80 H 100 Room Air 06/29/24 07:33 06/29/24 07:33 06/29/24 07:33 06/29/24 07:33 06/29/24 07:33 06/29/24 07:33 Oxygen Delivery Method Room Air Weight: 185 lb 5 oz Body Mass Index (BMI) 29.9 Intake & Output: Intake and Output for Last 24 Hours 06/27/24 06/28/24 06/29/24 23:59 23:59 23:59 Intake Total 1306.15 / 1306.15 Output Total 2525 / 2525 Balance -1218.85 / -1218.85 Lab / Micro Data 06/29/24 06:13 Labs: Laboratory Results - last 24 hr 06/28/24 09:35: WBC 16.9 H, RBC 4.58, Hgb 14.8, Hct 43.1, MCV 94.1, MCH 32.3 H, MCHC 34.3, RDW Std Deviation 42.4, RDW Coeff of Sly 12.2, Plt Count 292, MPV 9.9, Immature Gran % (Auto) 0.800, Neut % (Auto) 78.9 H, Lymph % (Auto) 13.6 L, [place] % (Auto) 5.7, Eos % (Auto) 0.6, Baso % (Auto) 0.4, Absolute Neuts (auto) 13.3 H, Absolute Lymphs (auto) 2.30, Nucleated RBC % 0, PT 13.2, INR 1.0, APTT 27.2, Fibrinogen 516 H, Blood Type Cancelled, Antibody Screen Cancelled 06/28/24 10:05: Blood Type A POSITIVE, Antibody Screen NEGATIVE 06/29/24 06:13: WBC 18.7 H, RBC 3.72 L, Hgb 12.0, Hct 36.1 L, MCV 97.0, MCH 32.3 H, MCHC 33.2, RDW Std Deviation 44.6 H, RDW Coeff of Sly 12.5, Plt Count 244, MPV 9.8 Radiography Diagnostic Testing: Radiology Impression Biophysical Profile Ultrasound 06/28/24 09:13 IMPRESSION: 1. Incomplete exam since ordering physician came to the ultrasound room and stopped the ultrasound exam to deliver the patient. Unable to obtain biophysical profile. 2. Single live intrauterine in cephalic presentation with positive heart tones 144 BPM. 3. Abnormal hypoechoic area in the superior aspect of placenta without vascularity measuring 4.3 x 4.3 x 2 cm worrisome for placental abruption. Electronically Signed: Lam Rosario MD at 10:48 EDT , ROS Constitutional Constitutional: Reports systems reviewed and no addt'l complaints, except as documented Cardiovascular Cardiovascular: Reports systems reviewed and no addt'l complaints, except as documented Respiratory/Chest Respiratory/Chest: Reports systems reviewed and no addt'l complaints, except as documented Gastrointestinal Gastrointestinal: Reports systems reviewed and no addt'l complaints, except as documented Physical Exam Const alert, oriented x3 and no apparent distress HEENT Head and Scalp: atraumatic Resp normal respiratory effort GI soft to palpation and non-tender Inspection: incision intact, healing well and drainage (none) Bimanual Exam - Vag & Uterus: uterus non-tender Uterus Palpation: uterus fundus firm (below Umbilicus) Assessment & Plan (1) delivery delivered: COMMENT: LTCS abruptiong 34 girl [facility] PLAN: Plan s/p LTCS PPD # 1 1. routine post care 2. breast feeding- support given 3. rh positive 4. rubella immune
--- NOTE | 2024-06-29 08:17 | DCINST_ITS ---
Discharge Instructions Diet Discharge Diet: No restrictions Activity Discharge Activity: May Not Drive (for 2 weeks or while taking narcotic pain medications.), May Shower and May Take a Tub Bath (in 7 days) May shower in (days): 0 May resume sexual activity in: 4-6 weeks Weight Bearing Status: Full weight bearing Lifting Restrictions: 20 pounds Dressing / Incision Call your doctor if your incision/area has: Continuous Slow Oozing, Sudden Increased Bleeding, Increased Pain/ Swelling, Increased Redness and Foul Smelling Discharge Call your doctor if you observe: Fever of 101 or Higher and Using more than 1 pad per hour (for 2 hours) Suture Line Care: Avoid Pulling/Pushing and Avoid Pinching/Bending Cleanse incision/area with: Soap & Water and Keep Dressing Clean & Dry Follow Up Care Please Follow Up With: Linh Kim MD When: Call [phone] to make an appointment for an incision check in 1-2 weeks. Test Results: Test results from this visit will be discussed in further detail at your follow- up appointment, if applicable. Discharge Plan Admission Admit Date/Time: 06/28/24 09:51 Attending Provider: Linh Kim Primary Care Provider: Sandra Kidd Discharge Orders/Prescriptions Prescriptions: New oxycodone-acetaminophen [Percocet] 5-325 mg tablet 1 tab PO Q6H PRN (Reason: pain) 7 Days Qty: 10 0RF naproxen 500 mg tablet 500 mg PO BID PRN PRN (Reason: Pain) Qty: 30 1RF No Action PNV-DHA 27 mg iron-1 mg -300 mg capsule 1 cap PO DAILY Zyrtec 10 mg capsule 10 mg PO DAILY PRN (Reason: allergy symptoms) Referrals / Follow Up: Sandra Kidd PA-C [Primary Care Provider] - Disposition Disposition (needs filled in before D/C Order can be placed): Home, Self Care
[2024-06-29] MEDS: Senna/Docusate Sodium 1 Tablet PO (10:37)
[2024-06-29] MEDS: Naproxen 500 MG Tablet PO ×2 (11:57→19:30)
[2024-06-29 13:58] VITALS: BP 132/89; PULSE 73; RESP 16; TEMP 37.2; O2SAT 100
[2024-06-29 20:45] VITALS: BP 120/71; PULSE 94; RESP 16; TEMP 36.8; O2SAT 98
[2024-06-30 01:20] VITALS: BP 131/91; PULSE 84; RESP 18; TEMP 36.7; O2SAT 100
[2024-06-30] MEDS: Naproxen 500 MG Tablet PO (04:06)
[2024-06-30] MEDS: Acetaminophen 500 MG Tablet 1000 MG PO ×2 (06:12→11:44)
--- NOTE | 2024-06-30 07:35 | PCM.PN.OB ---
Subjective Subjective Patient doing well without complaints. Tolerating PO. Ambulating and voiding without difficulty. feeding well. Denies chest pain, shortness of breath, calf pain/swelling, fevers, chills, lightheadedness. Objective Data Objective Data Vital Signs: Vital Signs Temp Pulse Resp BP Pulse Ox O2 Del Method 98.1 F 84 18 131/91 H 100 Room Air 06/30/24 01:20 06/30/24 01:20 06/30/24 01:20 06/30/24 01:20 06/30/24 01:20 06/30/24 01:20 Oxygen Delivery Method Room Air Weight: 185 lb 5 oz Body Mass Index (BMI) 29.9 Intake & Output: Intake and Output for Last 24 Hours 06/28/24 06/29/24 06/30/24 23:59 23:59 23:59 Intake Total 1306.15 / 1306.15 Output Total 2525 / 2525 Balance -1218.85 / -1218.85 Lab / Micro Data 06/29/24 06:13 Labs: Laboratory Results - last 24 hr 06/28/24 09:35: WBC 16.9 H, RBC 4.58, Hgb 14.8, Hct 43.1, MCV 94.1, MCH 32.3 H, MCHC 34.3, RDW Std Deviation 42.4, RDW Coeff of Sly 12.2, Plt Count 292, MPV 9.9, Immature Gran % (Auto) 0.800, Neut % (Auto) 78.9 H, Lymph % (Auto) 13.6 L, [place]linger % (Auto) 5.7, Eos % (Auto) 0.6, Baso % (Auto) 0.4, Absolute Neuts (auto) 13.3 H, Absolute Lymphs (auto) 2.30, Nucleated RBC % 0, PT 13.2, INR 1.0, APTT 27.2, Fibrinogen 516 H, Blood Type Cancelled, Antibody Screen Cancelled 06/28/24 10:05: Blood Type A POSITIVE, Antibody Screen NEGATIVE 06/29/24 06:13: WBC 18.7 H, RBC 3.72 L, Hgb 12.0, Hct 36.1 L, MCV 97.0, MCH 32.3 H, MCHC 33.2, RDW Std Deviation 44.6 H, RDW Coeff of Sly 12.5, Plt Count 244, MPV 9.8 Radiography Diagnostic Testing: Radiology Impression Biophysical Profile Ultrasound 06/28/24 09:13 IMPRESSION: 1. Incomplete exam since ordering physician came to the ultrasound room and stopped the ultrasound exam to deliver the patient. Unable to obtain biophysical profile. 2. Single live intrauterine in cephalic presentation with positive heart tones 144 BPM. 3. Abnormal hypoechoic area in the superior aspect of placenta without vascularity measuring 4.3 x 4.3 x 2 cm worrisome for placental abruption. Electronically Signed: Lam Rosario MD at 10:48 EDT , ROS Constitutional Constitutional: Reports systems reviewed and no addt'l complaints, except as documented Cardiovascular Cardiovascular: Reports systems reviewed and no addt'l complaints, except as documented Respiratory/Chest Respiratory/Chest: Reports systems reviewed and no addt'l complaints, except as documented Gastrointestinal Gastrointestinal: Reports systems reviewed and no addt'l complaints, except as documented Physical Exam Const alert, oriented x3 and no apparent distress HEENT Head and Scalp: atraumatic Resp normal respiratory effort GI soft to palpation and non-tender Inspection: incision intact, healing well and drainage (none) Bimanual Exam - Vag & Uterus: uterus non-tender Uterus Palpation: uterus fundus firm (below Umbilicus) Assessment & Plan (1) delivery delivered: COMMENT: LT abruptiong 34 girl [facility] PLAN: Plan s/p LTCS PPD # 2 1. routine post care 2. breast feeding- support given 3. rh positive 4. rubella immune
[2024-06-30 08:13] VITALS: BP 130/81; PULSE 84; RESP 16; TEMP 37.3; O2SAT 100
[2024-06-30] MEDS: Senna/Docusate Sodium 1 Tablet PO (11:44)
[2024-07-01 23:06] LABS: Pathology Specimen OB SEE PATHOLOGY REPORT
== END 2024-06-30 13:20 | disposition home or self-care (01) | DRG 786 ==
LOC: WP 09:52
PROVIDERS: Admitting Provider Obstetrics & Gynecology; PCP Family Medicine; Referring Provider Obstetrics & Gynecology; Visit Provider Obstetrics & Gynecology
DX: O45.93 Premature separation of placenta, unspecified, third trimester (principal); O60.14X0 Preterm labor third trimester with preterm delivery third trimester, not applicable or unspecified; Z37.0 Single live birth; Z3A.32 32 weeks gestation of pregnancy
CPT/HCPCS: 59025; 59050; 76819; 85025; 85027; 85384; 85610; 85730; 86850; 86900; 86901; 88307; 99221; J7120; A4216; G0378; J2405

== ENCOUNTER 2024-11-18 13:50 | Outpatient (CLI) | payer OTHER, SELFPAY | END 2024-11-18 14:25 | disposition home or self-care (01) | LOC: WPOUT 13:54 → WP 13:55 | PROVIDERS: PCP Family Medicine; Referring Provider Nurse Practitioner Family; Visit Provider Nurse Practitioner Family | DX: O92.79 Other disorders of lactation (principal) | CPT/HCPCS: 96158 ==